=== PATIENT | male | born 1955 | race Caucasian/White ===

== ENCOUNTER 2019-04-20 13:41 | Emergency (ER) | payer BC, OTHER ==
--- NOTE | 2019-04-20 15:20 | EDM.PDOC ---
ED HPI GENERAL MEDICAL PROBLEM - General Chief Complaint: ENT Problem Stated Complaint: FOOD STUCK IN THROAT Time Seen by Provider: 04/20/19 14:00 Source of Information: Reports: Patient History Limitations: Reports: No Limitations - History of Present Illness INITIAL COMMENTS - FREE TEXT/NARRATIVE: This 63 year old male was admitted to the ED with a chief complaint of feeling of something is stuck in his throat after eating scallop potatoes with ground beef. He states that he can swallow fluids without any problems. He denies any problems breathing or chest discomfort. Onset: Sudden Severity: Mild Improves with: Reports: Other (drinking water) Associated Symptoms: Reports: No Other Symptoms Throat Pain Score (Numeric/FACES): 3 Past Medical History - Past Health History Medical/Surgical History: Denies Medical/Surgical History Social & Family History - Family History Family Medical History: Noncontributory - Tobacco Use Smoking Status *Q: Never Smoker Second Hand Smoke Exposure: No ED ROS ENT - Review of Systems Review Of Systems: See Below Constitutional: Reports: No Symptoms HEENT: Reports: No Symptoms Respiratory: Reports: No Symptoms Endocrine: Reports: No Symptoms GI/Abdominal: Reports: Difficulty Swallowing (very mild at this time.) : Reports: No Symptoms Musculoskeletal: Reports: No Symptoms Skin: Reports: No Symptoms Neurological: Reports: No Symptoms ED EXAM, ENT - Physical Exam Exam: See Below Exam Limited By: No Limitations General Appearance: Alert, WD/WN, No Apparent Distress Ears: Normal External Exam, Normal Canal, Hearing Grossly Normal, Normal TMs Nose: Normal Inspection, Normal Mucousa, No Blood Mouth/Throat: Normal Inspection, Normal Gums, Normal Lips, Normal Oropharynx, Normal Teeth. No: Drooling, Hoarse Voice, Muffled Voice, Throat Pain Head: Atraumatic, Normocephalic Neck: Normal Inspection, Supple, Non-Tender, Full Range of Motion Respiratory/Chest: No Respiratory Distress, Lungs Clear, Normal Breath Sounds, No Accessory Muscle Use, Chest Non-Tender Cardiovascular: Normal Peripheral Pulses, Regular Rate, Rhythm, No Edema, No Gallop, No JVD, No Murmur, No Rub GI/Abdominal: Normal Bowel Sounds, Soft, Non-Tender, No Organomegaly, No Distention, No Abnormal Bruit, No Mass Rectal (Males) Exam: Deferred (at this time) Back: CVA Tenderness (R) Extremities: Normal Inspection, Normal Range of Motion, Non-Tender, No Pedal Edema, Normal Capillary Refill Neurological: Alert, Oriented, CN II-XII Intact, Normal Cognition, Normal Gait, Normal Reflexes, No Motor/Sensory Deficits Lymphatic: No Adenopathy Course - Vital Signs Text/Narrative:: I discussed with the patient that since he is totally asymptomatic and we have observed him for two hours, I don't feel that any imaging test are necessary and that he most likely have irritation of his esophagus. I explained this to the patient and he agrees. He will be discharged at this time. Last Recorded V/S: Last Vital Signs Temp 98.1 F 04/20/19 13:43 Pulse 72 04/20/19 13:43 Resp 18 04/20/19 13:43 BP 149/94 H 04/20/19 13:43 Pulse Ox 96 04/20/19 13:43 Departure - Departure Time of Disposition: 15:28 Disposition: Home, Self-Care 01 Condition: Good Clinical Impression: Irritable esophagus - Discharge Information *PRESCRIPTION DRUG MONITORING PROGRAM REVIEWED*: Yes *COPY OF PRESCRIPTION DRUG MONITORING REPORT IN PATIENT GUY: Yes Referrals: PCP,None [Primary Care Provider] - Forms: ED Department Discharge Additional Instructions: Follow up with your PCP or GI doctor in the next day or two. Drink plenty of cold liquids for the next 8-12 hours then, advance your diet as tolerated. Rest for the next 8-12 hours. Return to the ED if your condition gets worse or should you have any questions or concerns. The following information is given to patients seen in the emergency department who are being discharged to home. This information is to outline your options for follow-up care. We provide all patients seen in our emergency department with a follow-up referral. The need for follow-up, as well as the timing and circumstances, are variable depending upon the specifics of your emergency department visit. If you don't have a primary care physician on staff, we will provide you with a referral. We always advise you to contact your personal physician following an emergency department visit to inform them of the circumstance of the visit and for follow-up with them and/or the need for any referrals to a consulting specialist. The emergency department will also refer you to a specialist when appropriate. This referral assures that you have the opportunity for follow-up care with a specialist. All of these measure are taken in an effort to provide you with optimal care, which includes your follow-up. Under all circumstances we always encourage you to contact your private physician who remains a resource for coordinating your care. When calling for follow-up care, please make the office aware that this follow-up is from your recent emergency room visit. If for any reason you are refused follow-up, please contact the [facility] Emergency Department at and asked to speak to the emergency department charge nurse. Sepsis Event Note - Evaluation Sepsis Screening Result: No Definite Risk - Focused Exam Vital Signs: Vital Signs Temp Pulse Resp BP Pulse Ox 04/20/19 13:43 98.1 F 72 18 149/94 H 96 Date Exam was Performed: 04/20/19 Time Exam was Performed: 15:26
== END 2019-04-20 15:45 | disposition home or self-care (01) ==
LOC: MW.ED 13:41
DX: K22.8 Other specified diseases of esophagus (principal)
CPT/HCPCS: 99282

== ENCOUNTER 2020-01-20 09:51 | Emergency (ER) | payer OTHER ==
--- NOTE | 2020-01-20 10:26 | EDM.PDOC ---
ED HPI GENERAL MEDICAL PROBLEM - General Chief Complaint: Respiratory Problem Stated Complaint: POSITIVE COVID SYMPTOMS Time Seen by Provider: 01/20/20 09:58 Source of Information: Reports: Patient History Limitations: Reports: No Limitations - History of Present Illness INITIAL COMMENTS - FREE TEXT/NARRATIVE: HISTORY AND PHYSICAL: History of present illness: Patient is a 64-year-old male who resents to the ED today with concern of generalized weakness and decreased appetite with COVID-19 infection. Patient states he first started having symptoms of COVID-19 on January 05 and was tested a few days later and states at that time his COVID-19 test was negative. Patient states that he has continued to have continuous symptoms of COVID-19 since January 05 which initially he had "flulike symptoms "and states that he had the chills and body aches along with feeling tired and fatigued. Patient states since January 05, he has continued to feel generalized weakness and dec reased appetite but has had improvement of the chills and body aches sensation. Patient states he was again tested for COVID-19 at [facility] on 01/16/2020 and states at that time his COVID-19 was positive. Patient states that he has had a decreased appetite but has been able to eat and drink. Patient states his symptoms are not worse but are just not improved. Patient denies current fever, chills, chest pain, shortness of breath, or cough. Denies headache, neck stiff ness, change in vision, syncope, or near syncope. Denies nausea, vomiting, abdominal pain, diarrhea, constipation, or dysuria. Has not noted any blood in urine or stool. Denies any health history. Review of systems: As per history of present illness and below otherwise all systems reviewed and negative. Past medical history: As per history of present illness and as reviewed below otherwise noncontributory. Surgical history: As per history of present illness and as reviewed below otherwise noncontributory. Social history: See social history for further information Family history: As per history of present illness and as reviewed below otherwise noncontributory. Physical exam: General: Patient is alert, oriented, and in no acute distress. Patient sitting comfortably on exam table. Vitals stable and reviewed by me. HEENT: Atraumatic, normocephalic, pupils equal and reactive bilaterally, negative for conjunctival pallor or scleral icterus, mucous membranes moist, TMs normal bilaterally, throat clear, neck supple, nontender, trachea midline. No drooling or trismus noted. No meningeal signs. No hot potato voice noted. Lungs: Clear to auscultation, breath sounds equal bilaterally, chest nontender. Heart: S1S2, regular rate and rhythm without overt murmur Abdomen: Soft, nondistended, nontender. Negative for masses or hepatosplenomegaly. Negative for costovertebral tenderness. Pelvis: Stable nontender. Genitourinary: Deferred. Rectal: Deferred. Skin: Intact, warm, dry. No lesions or rashes noted. Extremities: Atraumatic, negative for cords or calf pain. Neurovascular unremarkable. Neuro: Awake, alert, oriented. Cranial nerves II through XII unremarkable. Cerebellum unremarkable. Motor and sensory unremarkable throughout. Exam nonfocal. Notes: After therapeutics in the ED today, patient expresses improvement of symptoms. Signs and symptoms that would prompt return to the ED thoroughly discussed with patient. Discussed importance for follow-up with a primary care provider. Voices understanding and is agreeable to plan of care. Denies any further questions or concerns at this time. Diagnostics: EKG, CBC, CMP, CXR, Trop Therapeutics: Zofran Prescription: Zofran Impression: COVID-19 infection Decreased appetite, improved Plan: 1. Your vital signs and oxygen saturation are well enough that you were able to monitor your symptoms at home. Continue to monitor for trouble breathing, new confusion or inability to arouse, bluish lips or face or any of the other symptoms we discussed -if this occurs please return to the emergency room.Continue to monitor your health at home for worsening symptoms so that you can be taken care of and treated quickly if needed. 2. Please self quarantine until 10 days have passed since your symptoms began AND you are fever free (<100.4 degrees Fahrenheit) for 24 hours without the use of fever-reducing medications AND symptoms are improving. You should restrict activities outside of your home, except for getting medical care. Do not go to work, school, or public areas. Avoid using public transportation, ride-sharing, or taxis. 3. Take the medications as we prescribed as discussed. 4. You may alternate Tylenol and ibuprofen as needed for pain and fever management. 5. The [facility] department will be calling you and following up with you if they have not already. The [place] COVID 19 Hotline phone number , They are open Thursday - Thursday 7am - 7pm. Follow up with your primary care provider for re-evaluation and re-testing after quarantine and discuss when you should be seen. 6. For more specific guidelines regarding isolation/quarantine please visit this website. https://www.health.[place].gov/sites/www /files/documents/Files/SANA/coronavirus/Factsheet_for_People_With_COVID-19.pdf Definitive disposition and diagnosis as appropriate pending reevaluation and review of above. - Related Data Allergies Allergy/AdvReac Type Severity Reaction Status Date / Time No Known Allergies Allergy Verified 01/20/20 10:08 Home Meds: Home Meds Ondansetron [Zofran ODT] 4 mg PO Q6H PRN #12 tab.dis 01/20/20 [Rx] Past Medical History - Past Health History Medical/Surgical History: Denies Medical/Surgical History - Infectious Disease History Infectious Disease History: Reports: Chicken Pox Social & Family History - Family History Family Medical History: Noncontributory - Tobacco Use Tobacco Use Status *Q: Never Tobacco User - Caffeine Use Caffeine Use: Reports: None - Recreational Drug Use Recreational Drug Use: No ED ROS GENERAL - Review of Systems Review Of Systems: Comprehensive ROS is negative, except as noted in HPI. ED EXAM, GENERAL - Physical Exam Exam: See Below (see dictation) Course - Vital Signs Last Recorded V/S: Last Vital Signs Temp 97.3 F 01/20/20 12:36 Pulse 73 01/20/20 12:36 Resp 18 01/20/20 12:36 BP 103/61 01/20/20 12:36 Pulse Ox 93 L 01/20/20 12:36 - Orders/Labs/Meds Labs: Laboratory Tests 01/20/20 01/20/20 Range/Units 10:54 10:54 WBC 6.71 (4.0-11.0) K/uL RBC 5.47 (4.50-5.90) M/uL Hgb 16.7 (13.0-17.0) g/dL Hct 48.9 (38.0-50.0) % MCV 89.4 (80.0-98.0) fL MCH 30.5 (27.0-32.0) pg MCHC 34.2 (31.0-37.0) g/dL RDW Std Deviation 42.1 (28.0-62.0) fl RDW Coeff of Fidencio 13 (11.0-15.0) % Plt Count 135 L (150-400) K/uL MPV 10.20 (7.40-12.00) fL Neut % (Auto) 76.5 (48.0-80.0) % Lymph % (Auto) 13.7 L (16.0-40.0) % [place] % (Auto) 9.2 (0.0-15.0) % Eos % (Auto) 0.3 (0.0-7.0) % Baso % (Auto) 0.3 (0.0-1.5) % Neut # (Auto) 5.1 (1.4-5.7) K/uL Lymph # (Auto) 0.9 (0.6-2.4) K/uL [place] # (Auto) 0.6 (0.0-0.8) K/uL Eos # (Auto) 0.0 (0.0-0.7) K/uL Baso # (Auto) 0.0 (0.0-0.1) K/uL Nucleated RBC % 0.0 /100WBC Nucleated RBCs # 0 K/uL Sodium 136 (136-148) mmol/L Potassium 3.8 (3.5-5.1) mmol/L Chloride 99 (98-107) mmol/L Carbon Dioxide 25.0 (21.0-32.0) mmol/L BUN 17 (7.0-18.0) mg/dL Creatinine 1.2 (0.8-1.3) mg/dL Est Cr Clr Drug Dosing TNP Estimated GFR (MDRD) > 60.0 ml/min Glucose 94 (74-106) mg/dL Calcium 9.3 (8.5-10.1) mg/dL Total Bilirubin 1.1 H (0.2-1.0) mg/dL AST 27 (15-37) IU/L ALT 10 L (14-63) IU/L Alkaline Phosphatase 54 (46-116) U/L Troponin I < 0.050 (0.000-0.056) ng/mL Total Protein 7.6 (6.4-8.2) g/dL Albumin 3.5 (3.4-5.0) g/dL Globulin 4.1 H (2.6-4.0) g/dL Albumin/Globulin Ratio 0.9 (0.9-1.6) Meds: Medications Discontinued Medications Generic Name Dose Route Start Last Admin Trade Name Freq PRN Reason Stop Dose Admin Ondansetron HCl 4 mg 01/20/20 10:39 01/20/20 11:04 Zofran Odt PO 01/20/20 10:40 4 mg ONETIME ONE Administration Departure - Departure Time of Disposition: 12:18 Disposition: Home, Self-Care 01 Clinical Impression: COVID-19 virus infection, Decreased appetite - Discharge Information Prescriptions: Ondansetron [Zofran ODT] 4 mg PO Q6H PRN #12 tab.dis PRN Reason: Nausea/Vomiting Instructions: COVID-19 Frequently Asked Questions, COVID-19, COVID-19: How to Protect Yourself and Others - CDC, Prevent the Spread of COVID-19 if You Are Sick - [facility] Referrals: PCP,None [Primary Care Provider] - Forms: ED Department Discharge Additional Instructions: The following information is given to patients seen in the emergency department who are being discharged to home. This information is to outline your options for follow-up care. We provide all patients seen in our emergency department with a follow-up referral. The need for follow-up, as well as the timing and circumstances, are variable depending upon the specifics of your emergency department visit. If you don't have a primary care physician on staff, we will provide you with a referral. We always advise you to contact your personal physician following an emergency department visit to inform them of the circumstance of the visit and for follow-up with them and/or the need for any referrals to a consulting specialist. The emergency department will also refer you to a specialist when appropriate. This referral assures that you have the opportunity for follow-up care with a specialist. All of these measure are taken in an effort to provide you with optimal care, which includes your follow-up. Under all circumstances we always encourage you to contact your private physician who remains a resource for coordinating your care. When calling for follow-up care, please make the office aware that this follow-up is from your recent emergency room visit. If for any reason you are refused follow-up, please contact the [facility] Emergency Department at and asked to speak to the emergency department charge nurse. [facility] [address] [place] [address] [facility] [address] [place] [id number] 1. Your vital signs and oxygen saturation are well enough that you were able to monitor your symptoms at home. Continue to monitor for trouble breathing, new confusion or inability to arouse, bluish lips or face or any of the other symptoms we discussed -if this occurs please return to the emergency room.Continue to monitor your health at home for worsening symptoms so that you can be taken care of and treated quickly if needed. 2. Please self quarantine until 10 days have passed since your symptoms began AND you are fever free (<100.4 degrees Fahrenheit) for 24 hours without the use of fever-reducing medications AND symptoms are improving. You should restrict activities outside of your home, except for getting medical care. Do not go to work, school, or public areas. Avoid using public transportation, ride-sharing, or taxis. 3. Take the medications as we prescribed as discussed. 4. You may alternate Tylenol and ibuprofen as needed for pain and fever management. 5. The [facility] department will be calling you and following up with you if they have not already. The [place] COVID 19 Hotline phone number , They are open Thursday - Thursday 7am - 7pm. Follow up with your primary care provider for re-evaluation and re-testing after quarantine and discuss when you should be seen. 6. For more specific guidelines regarding isolation/quarantine please visit this website. https://www.health.[place].gov/sites/www/files/documents/Files/SANA/coronavirus/Factsh eet_for_People_With_COVID-19.pdf Sepsis Event Note (ED) - Evaluation Sepsis Screening Result: No Definite Risk - Focused Exam Vital Signs: Vital Signs Temp Pulse Resp BP Pulse Ox 01/20/20 12:36 97.3 F 73 18 103/61 93 L 01/20/20 11:04 96.4 F L 64 18 97/67 95 01/20/20 10:15 96.1 F L 86 20 112/76 94 L
[2020-01-20] MEDS ORDERED: Ondansetron 4 MG Tab.DIS PO ONE (10:39)
--- NOTE | 2020-01-20 11:26 | PCM.PRNOTE ---
- Free Text/Narrative Note: Time: 113 Rate: 69 Rhythm: sinus Intervals: normal ST-T wave: no acute changes Overall: normal sinus rhythm
[2020-01-20 11:39] LABS: BLOOD UREA NITROGEN,BUN 17 mg/dL (7.0-18.0); CHLORIDE,CL 99 mmol/L (98-107); GLUCOSE RANDOM 94 mg/dL (74-106); POTASSIUM,K 3.8 mmol/L (3.5-5.1); SODIUM,NA 136 mmol/L (136-148)
--- NOTE | 2020-01-20 12:07 | CR ---
Indication: Weakness, history of coronal virus infection Comparison: None available. Technique: Single AP view chest Findings: There is hyperinflation and chronic interstitial change. There are questionable developing airspace opacities in the inferior right upper lobe. There is no pleural effusion or pneumothorax. The cardiomediastinal silhouette is within normal limits. The bony thorax is grossly intact. Impression: Questionable mild developing airspace opacities within the right upper lobe consistent with history of atypical viral infection. Dictated by Manas Kwong MD @ Jan 20 2020 12:02PM Signed by Dr. Manas Kwong @ Jan 20 2020 12:06PM
== END 2020-01-20 12:40 | disposition home or self-care (01) ==
LOC: MW.ED 09:51
DX: U07.1 COVID-19 (principal); R63.0 Anorexia
CPT/HCPCS: 36415; 71045; 80053; 84484; 85025; 93005; 99285; A9270